=== PATIENT | female | born 1970 | race Caucasian/White ===

== ENCOUNTER 2016-09-03 20:49 | Emergency (ER) | payer SELFPAY ==
[~2016-09-03] VITALS: Ht 162.6 cm; Wt 64.4 kg
[~2016-09-03 20:49] MED LIST: HYDR25TA6 PO; LISI-170 PO; LISI40TA PO; METO25TA35 PO; METO50TA82 PO; ZOLP-413 PO
[2016-09-03] MEDS ORDERED: SODIUM CHLORIDE 0.9% 1,000ML IVBOLUS ONE (21:30)
[2016-09-03] MEDS ORDERED: ONDANSETRON 2MG/ML, 2ML IVPush ONE (21:30)
[2016-09-03] MEDS ORDERED: MORPHINE SULFATE 4 MG/ML, 1ML IVPush PRN (21:30)
[2016-09-03] MEDS ORDERED: KETOROLAC 30 MG/1 ML IVPush ONE (21:30)
[2016-09-03] MEDS ORDERED: SODIUM CHLORIDE FLUSH 10ML SYR IVF ONE (21:30)
[2016-09-03] MEDS ORDERED: ONDANSETRON 2MG/ML, 2ML ONE (21:43)
[2016-09-03] MEDS ORDERED: KETOROLAC 30 MG/1 ML ONE (21:43)
[2016-09-03 22:03] LABS: ASPARTATE AMINO TRANSFERASE 131 U/L (15-37); BLOOD UREA NITROGEN 7 mg/dL (7-18)
[2016-09-03 22:08] LABS: IS PT STATUS REG ER OR PRE ER? YES
[2016-09-03 23:00] VITALS: BP 105/72
== END 2016-09-03 23:03 | disposition left against medical advice (07) ==
LOC: ED 22:57
DX: R07.89 Other chest pain (principal); I10 Essential (primary) hypertension; K75.9 Inflammatory liver disease, unspecified; F17.200 Nicotine dependence, unspecified, uncomplicated; F11.10 Opioid abuse, uncomplicated
CPT/HCPCS: 36415; 71010; 80053; 84484; 85025; 85379; 93005; 96374; 96375; 99285; J1885; J2405; J7030

== ENCOUNTER 2018-05-07 14:48 | Emergency (ER) | payer OTHER ==
[~2018-05-07] VITALS: Ht 162.6 cm; Wt 68.1 kg
[2018-05-07 14:52] VITALS: BP 178/96
[2018-05-07] MEDS ORDERED: FLUORESCEIN OPHTHALMIC 1 MG STRIP LEFTEYE ONE (15:00)
[2018-05-07] MEDS ORDERED: PROPARACAINE OPHTH 0.5%, 15ML LEFTEYE ONE (15:00)
[2018-05-07] MEDS ORDERED: PROPARACAINE OPHTH 0.5%, 15ML ONE (15:01)
== END 2018-05-07 15:51 | disposition home or self-care (01) ==
LOC: ED 15:15
DX: H10.212 Acute toxic conjunctivitis, left eye (principal); I10 Essential (primary) hypertension; Z88.5 Allergy status to narcotic agent
CPT/HCPCS: 99283

== ENCOUNTER 2019-07-29 21:52 | Emergency (ER) | payer OTHER ==
[~2019-07-29] VITALS: Ht 165.1 cm; Wt 68.2 kg
[2019-07-29] MEDS ORDERED: ZIPRASIDONE 20 MG INJ IM ONE ×2 (22:00)
[2019-07-29] MEDS ORDERED: LORazepam 2 MG/ML, 1ML IM ONE (22:00)
[2019-07-29] MEDS ORDERED: LORazepam 2 MG/ML, 1ML ONE (22:02)
--- NOTE | 2019-07-29 22:12 | NUR ---
2 of 2 belongings bags placed in secure locker.
--- NOTE | 2019-07-29 22:12 | NUR ---
LEGAL HOLD PLACED BY [employer].
[2019-07-29 22:46] LABS: BASOPHILS # (AUTO) 0.14 x10^3/uL (0-0.1); BASOPHILS % (AUTO) 2 % (0-1); EOSINOPHILS # (AUTO) 0.39 x10^3/uL (0-0.4); EOSINOPHILS % (AUTO) 6 % (1-7); LYMPHOCYTES % (AUTO) 43 % (22-44); MD NO; MEAN CORPUSCULAR HEMOGLOBIN 29.5 pg (27.0-34.8); MEAN CORPUSCULAR HGB CONC 33.1 g/dL (32.4-35.8); MEAN CORPUSCULAR VOLUME 89.3 fL (80-100); MEAN PLATELET VOLUME 8.2 fL (7.4-10.4); MONOCYTES # (AUTO) 0.55 x10^3/uL (0.2-0.8); MONOCYTES % (AUTO) 8 % (2-9); NEUTROPHILS # (AUTO) 2.94 x10^3/uL (1.8-6.8); NEUTROPHILS % (AUTO) 42 % (42-75); PLATELET COUNT 242 x10^3/uL (130-400); RED BLOOD COUNT 4.56 x10^6/uL (3.82-5.3); RED CELL DISTRIBUTION WIDTH 18.3 % (9.6-15.2)
[2019-07-29 22:55] LABS: ALANINE AMINOTRANSFERASE 87 U/L (12-78); ALBUMIN 3.5 g/dL (3.4-5.0); ANION GAP 10 mmol/L (5-15); CALCIUM 8.4 mg/dL (8.5-10.1); CHLORIDE 111 mmol/L (98-107); CREATININE 0.73 mg/dL (0.55-1.02)
[2019-07-29 22:59] LABS: SALICYLATE LEVEL < 1.7 mg/dL (2.8-20.0)
[2019-07-29 23:00] LABS: ALKALINE PHOSPHATASE 103 U/L (45-117); BILIRUBIN,TOTAL 0.5 mg/dL (0.2-1.0); TOTAL PROTEIN 8.8 g/dL (6.4-8.2)
--- NOTE | 2019-07-29 23:02 | NUR ---
PT RECIEVED BY [employer]. SHE CALLED THEM BECAUSE SHE WAS HAVING THOUGHT ABOUT HURTING HERSELF. SHE SAID SHE WAS DRINKING BECAUSE SHE HASNT SLEPT FOR 4 DAYS. PT UNSURE OF AMOUNT OF ALCOHOL. PT SAYS SHE HAS BEEN FEELING SUICIDAL FOR A COUPLE DAYS AND HER PLAN WAS TO USE A RAZOR BLADE TO CUT HER WRISTS TONIGHT. SHE THOUGHT ABOUT HER 2 DAUGHTERS AND DECIDED TO CALL THE POLICE INSTEAD TO GET HELP. PT REPORTS PSYCH HX OF SCHIZOPHRENIA, OCD. PER PT NO HX SI OR SA. NO HOME MEDS FOR 1-2 YEARS. HEARS A VIOCE IN HER RIGHT EAR ONLY THAT SAYS HER NAME BUT NO COMMANDS OR NEGATIVE CONTENT FROM VOICE. PT RECIEVED IN HANDCUFFS DUE TO COMBATIVE BEHAVIOR PER [employer]. PT AGITATED AND I USED VERBAL DE-ESCALATION WITH SUCCESS. PT PLACED IN 4 PT RESTRAINTS PER ER MD SINCERE AND THEN PT MEDICATED PER ER MD ORDERS. PT TOLERATED RESTRAINTS AND MEDICATIONS WELL. RESTAINTS WERE IN PLACE FOR ONLY 45 MINUTES BEFORE BEING TOTALLY REMOVED. SEE PAPER CHART FOR RESRAINT PAPERWORK.
--- NOTE | 2019-07-29 23:08 | NUR ---
PT RESTING ON GURNEY WITH O2 MONITORING. PT EYES CLOSED, RESPIRATIONS EVEN AND UNLABORED. SITTER AT BEDSIDE 1:1 FOR PT SAFTEY.
--- NOTE | 2019-07-30 00:58 | NUR ---
PT RESTING ON GURNEY WITH O2 MONITORING. PT EYES CLOSED, RESPIRATIONS EVEN AND UNLABORED. SITTER AT BEDSIDE 1:1 FOR PT SAFTEY.
--- NOTE | 2019-07-30 02:46 | NUR ---
PT RESTING ON GURNEY WITH O2 MONITORING. PT EYES CLOSED, RESPIRATIONS EVEN AND UNLABORED. SITTER AT BEDSIDE 1:1 FOR PT SAFTEY.
--- NOTE | 2019-07-30 03:10 | NUR ---
Spoke to [facility]. Floor not accepting patients at this time.
--- NOTE | 2019-07-30 03:10 | NUR ---
Patient info packet sent to [facility].
--- NOTE | 2019-07-30 04:17 | NUR ---
PT RESTING ON GURNEY WITH O2/BP MONITORING. PT EYES CLOSED, RESPIRATIONS EVEN AND UNLABORED. SITTER AT DOORWAY FOR FREQUENT CHECKS.
--- NOTE | 2019-07-30 07:32 | NUR ---
BEDSIDE REPORT RECIEVED, PT RESTING ON HOSPITAL BED. NAD NOTED. WATER REQUESTED AND GIVEN TO PT, DISCUSSED NEED FOR URINE SAMPLE.
[2019-07-30 08:52] VITALS: BP 142/95
--- NOTE | 2019-07-30 08:53 | NUR ---
BREAK RN: VSS, PATIENT UP IN BED EATING BREAKFAST AT THIS TIME.
[2019-07-30] MEDS ORDERED: LORazepam 1MG TABLET ONE (11:23)
[2019-07-30] MEDS ORDERED: LORazepam 1MG TABLET PO PRN (11:30)
--- NOTE | 2019-07-30 11:37 | NUR ---
PT RESTING ON GURNEY. PT REQUESTED FOR PRN ANXIETY MEDICATION. ORDER OBTAINED FROM , PT MEDICATED PER JUL. PT ASSISTED TO PHONE TO CALL PER REQUEST.
[2019-07-30 11:51] LABS: AMPHETAMINE SCREEN, URINE Positive (Negative); BARBITURATE SCREEN, URINE Negative (Negative); BENZODIAZEPINE SCREEN, URINE Negative (Negative); CANNABINOID SCREEN, URINE Negative (Negative); COCAINE SCREEN, URINE Negative (Negative); METHADONE SCREEN, URINE Negative (Negative); OPIATE SCREEN, URINE Negative (Negative)
[2019-07-30] MEDS ORDERED: ARIPIPRAZOLE 10 MG TABLET ONE (12:54)
[2019-07-30] MEDS ORDERED: ARIPIPRAZOLE 400 MG INJ NC IM ONE (13:00)
[2019-07-30] MEDS ORDERED: ARIPIPRAZOLE 10 MG TABLET PO SCH (13:00)
--- NOTE | 2019-07-30 13:12 | NUR ---
PHARMACY CALLED, NO ABILIFY MAINTAINA AVAILABLE IN HOSPITAL. NAVNEET BUCHANAN UPDATED
== END 2019-07-30 13:34 | disposition home or self-care (01) ==
LOC: ED 23:01
DX: F22 Delusional disorders (principal); F23 Brief psychotic disorder; R45.851 Suicidal ideations; F17.200 Nicotine dependence, unspecified, uncomplicated; I10 Essential (primary) hypertension; Z90.89 Acquired absence of other organs; Z90.49 Acquired absence of other specified parts of digestive tract; Z90.710 Acquired absence of both cervix and uterus
CPT/HCPCS: 36415; 80053; 80307; 84703; 85025; 96372; 99285; J2060; J3486

== ENCOUNTER 2020-05-17 08:44 | Emergency (ER) | payer OTHER ==
[~2020-05-17] VITALS: Ht 165.1 cm; Wt 65.0 kg
[2020-05-17] MEDS ORDERED: PLEASE ENTER HEIGHT AND WEIGHT MC SCH (09:00)
[2020-05-17] MEDS ORDERED: KETOROLAC 30 MG/1 ML IVPush ONE (09:00)
[2020-05-17] MEDS ORDERED: LORazepam 2 MG/ML, 1ML IVPush ONE (09:00)
[2020-05-17] MEDS ORDERED: SODIUM CHLORIDE 0.9% 1,000ML IVBOLUS ONE (09:00)
[2020-05-17] MEDS ORDERED: ASPIRIN 81 MG TABLET CHEW PO ONE (09:00)
[2020-05-17] MEDS ORDERED: ONDANSETRON 2MG/ML, 2ML IVPush ONE (09:00)
--- NOTE | 2020-05-17 09:01 | NUR ---
bib AMB from home. pt stopped doing heroin 4 days ago and since last night has had intermit subsertnal CP since last night. pt states she feels very anxious and has not slept. would like something to help calm her down. vss + tachycardic at 118
[2020-05-17] MEDS ORDERED: KETOROLAC 30 MG/1 ML ONE (09:05)
[2020-05-17] MEDS ORDERED: ONDANSETRON 2MG/ML, 2ML ONE (09:06)
[2020-05-17] MEDS ORDERED: LORazepam 2 MG/ML, 1ML ONE (09:06)
[2020-05-17] MEDS ORDERED: BUPRENORPHINE/NALOXONE 2-0.5MG SL ONE (09:30)
--- NOTE | 2020-05-17 09:31 | NUR ---
PT STATES SHE IS FEELING A LITTLE CALMER. VSS.
[2020-05-17 09:43] LABS: MEAN CORPUSCULAR HEMOGLOBIN 29.8 pg (27.0-34.8); MEAN CORPUSCULAR HGB CONC 33.5 g/dL (32.4-35.8); MEAN PLATELET VOLUME 8.5 fL (7.4-10.4); PLATELET COUNT 161 x10^3/uL (130-400); RED CELL DISTRIBUTION WIDTH 15.2 % (9.6-15.2)
--- NOTE | 2020-05-17 09:47 | NUR ---
pt resting in bed. vss.
[2020-05-17 09:52] LABS: ALBUMIN 2.8 g/dL (3.4-5.0); ANION GAP 6 mmol/L (5-15); CALCIUM 8.3 mg/dL (8.5-10.1); CHLORIDE 102 mmol/L (98-107)
[2020-05-17 09:57] LABS: ALANINE AMINOTRANSFERASE 32 U/L (12-78); ALKALINE PHOSPHATASE 102 U/L (45-117); BILIRUBIN,TOTAL 1.2 mg/dL (0.2-1.0); CREATININE 0.64 mg/dL (0.55-1.02); TOTAL PROTEIN 7.6 g/dL (6.4-8.2); TROPONIN I < 0.015 ng/mL (0.000-0.045)
--- NOTE | 2020-05-17 10:14 | NUR ---
pt sleeping in bed. vss. will continue to monitor.
[2020-05-17 10:16] LABS: MD YES
[2020-05-17 10:18] LABS: <RBC MORPHOLOGY> NORMAL; BAND#(MANUAL) 0.14 x10^3/uL; BANDS%(MANUAL) 1 % (0-7); LYMPH#(MANUAL) 0.84 x10^3/uL (1-3.4); LYMPHS% (MANUAL) 6 % (22-44); MONOS#(MANUAL) 1.12 x10^3/uL (0.3-2.7); MONOS% (MANUAL) 8 % (2-9); SEGS% (MANUAL) 85 % (42-75)
[2020-05-17 10:19] LABS: <PLATELET ESTIMATE> DECREASED; <PLT MORPHOLOGY> NORMAL PLT MORPH
[2020-05-17] MEDS ORDERED: OMNIPAQUE 350 MG/ML, 100ML BOTTLE ONE (10:39)
[2020-05-17 12:57] VITALS: BP 134/71
[2020-05-18] MEDS ORDERED: METO50TA82 PO (11:44)
[2020-05-18] MEDS ORDERED: LISI-170 PO (11:44)
== END 2020-05-17 13:00 | disposition home or self-care (01) ==
LOC: ED 09:38
DX: J15.9 Unspecified bacterial pneumonia (principal); R11.2 Nausea with vomiting, unspecified; I10 Essential (primary) hypertension; F19.139 Other psychoactive substance abuse with withdrawal, unspecified; R06.02 Shortness of breath; R07.89 Other chest pain; F17.200 Nicotine dependence, unspecified, uncomplicated; Z76.0 Encounter for issue of repeat prescription; Z90.49 Acquired absence of other specified parts of digestive tract; Z90.89 Acquired absence of other organs; Z90.710 Acquired absence of both cervix and uterus
CPT/HCPCS: 36415; 71045; 71275; 80053; 83880; 84484; 85025; 85379; 93005; 96361; 96374; 96375; 99285; J0572; J1885; J2405; J7030; Q9967

== ENCOUNTER 2020-05-18 07:38 | Inpatient (IN) | payer OTHER ==
[~2020-05-18] VITALS: Ht 165.1 cm; Wt 69.1 kg
--- NOTE | 2020-05-18 08:04 | NUR ---
PT BIBA FROM [facility], REPORT TAKEN FROM EMS. C/O "POUNDING CHEST" , SOB, HEADACHE, INTERMITTENT SHARP STERNAL CP SINCE LAST NIGHT. PT SEEN IN THIS ED YESTERDAY FOR HTN AND HEROIN WITHDRAWAL, DX WITH PNA AND SENT HOME WITH SCRIPT FOR METOPROLOL, LISINOPRIL, SUBOXONE AND AZITHROMYCIN, PT DID NOT FILL SCRIPTS. LAST HEROIN USE 5 DAYS AGO. ALL MONITORS IN PLACE, PT IS SINUS TACH RATE 100'S WITH NO ECTOPY. EKG TAKEN BY THIS RN AND REVIEWED BY JENNIFER VAUGHN. PT DRESSED IN GOWN AND AWAITING MD ASSESSMENT.
[2020-05-18] MEDS ORDERED: CEFTRIAXONE PMX 1GM/50ML 50 ML IVPB ONE (08:30)
[2020-05-18] MEDS ORDERED: SODIUM CHLORIDE 0.9% 1,000ML IVBOLUS ONE (08:30)
[2020-05-18] MEDS ORDERED: AZITHROMYCIN 500 MG in SODIUM CHLORIDE 0.9% 250 ML IV ONE (08:30)
[2020-05-18] MEDS ORDERED: LORazepam 1MG TABLET ONE (08:51)
[2020-05-18 08:53] LABS: ALBUMIN 2.7 g/dL (3.4-5.0); ANION GAP 7 mmol/L (5-15); CALCIUM 8.1 mg/dL (8.5-10.1); CHLORIDE 101 mmol/L (98-107); CREATININE 0.63 mg/dL (0.55-1.02)
[2020-05-18 08:56] LABS: TROPONIN I < 0.015 ng/mL (0.000-0.045)
[2020-05-18] MEDS ORDERED: LORazepam 1MG TABLET PO ONE (09:00)
[2020-05-18 09:03] LABS: BASOPHILS % (AUTO) 1 % (0-1); EOSINOPHILS % (AUTO) 2 % (1-7); LYMPHOCYTES % (AUTO) 11 % (22-44); MEAN CORPUSCULAR HEMOGLOBIN 30.1 pg (27.0-34.8); MEAN PLATELET VOLUME 8.5 fL (7.4-10.4); MONOCYTES % (AUTO) 14 % (2-9); NEUTROPHILS % (AUTO) 73 % (42-75); PLATELET COUNT 139 x10^3/uL (130-400); RED BLOOD COUNT 4.08 x10^6/uL (3.82-5.3); RED CELL DISTRIBUTION WIDTH 14.8 % (9.6-15.2)
[2020-05-18] MEDS ORDERED: CEFTRIAXONE PMX 1GM/50ML 50 ML ONE (09:07)
[2020-05-18 09:08] LABS: MD NO
--- NOTE | 2020-05-18 09:30 | NUR ---
late entry for 0930: report given to IGNACIO Montgomery.
--- NOTE | 2020-05-18 09:40 | NUR ---
task rn- pt resting in bed, call light in reach
--- NOTE | 2020-05-18 10:05 | NUR ---
ARMIN VAUGHN AT BEDSIDE TO DISCUSS POC
--- NOTE | 2020-05-18 11:40 | NUR ---
CARE ASSUMED FROM IGNACIO BEGUM, REPORT CALLED TO RECEIVING IGNACIO SEBASTIAN. PT AWAITING TRANSPORT TO [facility].
[2020-05-18] MEDS ORDERED: METO50TA82 PO (11:44)
[2020-05-18] MEDS ORDERED: LISI-170 PO (11:44)
--- NOTE | 2020-05-18 11:47 | NUR ---
pt sleeping, resps even and unlabored. awakens to voice. call light in reach. spo2 89% on room air, oxgen applied at 2L/min via nc. no s/sx resp distress. med rec complete. pt awaiting transport to [facility].
--- NOTE | 2020-05-18 11:51 | NUR ---
BEDSIDE REPORT RECEIVED FROM IGNACIO MAXWELL FOR TRANSFER OF PATIENT CARE.
--- NOTE | 2020-05-18 11:59 | NUR ---
PATIENT TRANSFERRED TO [facility] FLOOR VIA GURNEY WITH 2 ED TECHS. ALL PATIENT BELONGINGS GATHERED AND TAKEN WITH PATIENT TO FLOOR.
[2020-05-18] MEDS ORDERED: LORazepam 1MG TABLET PO PRN (13:00)
[2020-05-18] MEDS ORDERED: MELATONIN 5 MG TABLET PO PRN (13:00)
[2020-05-18] MEDS ORDERED: PHARMACY MAY ADJ FOR RENAL FX MC PRN (13:00)
[2020-05-18] MEDS ORDERED: DOCUSATE 100 MG CAPSULE PO PRN (13:00)
[2020-05-18] MEDS: ENOXAPARIN 40 MG/0.4 ML SQ SCH (13:00)
[2020-05-18] MEDS ORDERED: hydrALAzine 20 MG/ML, 1ML IVPush PRN (13:00)
[2020-05-18] MEDS ORDERED: ONDANSETRON ODT 4 MG PO PRN (13:00)
[2020-05-18] MEDS ORDERED: ACETAMINOPHEN 325 MG TABLET PO PRN (13:00)
[2020-05-18] MEDS ORDERED: POLYETHYLENE GLYCOL 17 GM PACKET PO PRN (13:00)
[2020-05-18] MEDS ORDERED: BISACODYL 10 MG SUPP PR PRN (13:00)
[2020-05-18] MEDS ORDERED: ONDANSETRON 2MG/ML, 2ML IVPush PRN (13:00)
[2020-05-18] MEDS ORDERED: HYDROcodone/APAP 5/325 TABLET PO PRN (13:00)
[2020-05-18] MEDS ORDERED: VANCOMYCIN PER PHARMACY MC PRN (13:30)
[2020-05-18 13:33] VITALS: BP 147/77
[2020-05-18] MEDS ORDERED: PHARMACOKINETIC CONSULTATION MC ONE (14:00)
[2020-05-18] MEDS ORDERED: PHARMACOKINETIC MONITORING MC PRN (14:00)
[2020-05-18 15:00] VITALS: BP 137/64
[2020-05-18] MEDS ORDERED: VANCOMYCIN 1,600 MG in SODIUM CHLORIDE 0.9% 250 ML IV ONE (15:30)
[2020-05-18] MEDS: METOPROLOL TARTRATE 25 MG TAB PO SCH (17:41)
[2020-05-18] MEDS: ASCORBIC ACID 500 MG TABLET PO SCH (20:04)
[2020-05-18 20:46] VITALS: BP 128/78
[2020-05-19 01:29] VITALS: BP 152/89
[2020-05-19] MEDS: VANCOMYCIN 1,300 MG in SODIUM CHLORIDE 0.9% 250 ML IV SCH ×2 (03:21→14:33)
[2020-05-19 05:30] LABS: BASOPHILS % (AUTO) 1 % (0-1); EOSINOPHILS % (AUTO) 3 % (1-7); LYMPHOCYTES % (AUTO) 13 % (22-44); MD NO; MEAN CORPUSCULAR HEMOGLOBIN 29.9 pg (27.0-34.8); MEAN CORPUSCULAR HGB CONC 33.4 g/dL (32.4-35.8); MEAN PLATELET VOLUME 8.3 fL (7.4-10.4); MONOCYTES % (AUTO) 14 % (2-9); NEUTROPHILS % (AUTO) 69 % (42-75); PLATELET COUNT 151 x10^3/uL (130-400); RED BLOOD COUNT 4.22 x10^6/uL (3.82-5.3); RED CELL DISTRIBUTION WIDTH 14.7 % (9.6-15.2)
[2020-05-19 05:40] VITALS: BP 127/73
[2020-05-19] MEDS: METOPROLOL TARTRATE 25 MG TAB PO SCH ×2 (05:43→17:40)
[2020-05-19 05:46] LABS: CHLORIDE 104 mmol/L (98-107)
[2020-05-19 05:55] LABS: ALANINE AMINOTRANSFERASE 28 U/L (12-78); ALBUMIN 2.6 g/dL (3.4-5.0); ALKALINE PHOSPHATASE 90 U/L (45-117); ANION GAP 4 mmol/L (5-15); BILIRUBIN,TOTAL 1.4 mg/dL (0.2-1.0); CALCIUM 8.3 mg/dL (8.5-10.1); CREATININE 0.64 mg/dL (0.55-1.02); TOTAL PROTEIN 7.2 g/dL (6.4-8.2)
[2020-05-19] MEDS ORDERED: BUPRENORPHINE/NALOXONE 8-2MG SL ONE (06:00)
[2020-05-19 06:27] LABS: HCG UR SG 1.006 (1.003-1.030)
[2020-05-19 06:52] VITALS: BP 126/78
[2020-05-19] MEDS ORDERED: CHOLECALCIFEROL 5,000u TAB PO SCH (09:00)
[2020-05-19] MEDS ORDERED: AZITHROMYCIN 250 MG TABLET PO SCH (09:00)
[2020-05-19] MEDS ORDERED: ZINC SULFATE 220 MG CAPSULE PO SCH (09:00)
[2020-05-19] MEDS: BUPRENORPHINE/NALOXONE 8-2MG SL SCH (09:00)
[2020-05-19] MEDS ORDERED: THIAMINE 100MG TABLET PO SCH (09:00)
[2020-05-19] MEDS: CEFTRIAXONE PMX 2GM/50ML 50 ML IVPB SCH (09:17)
[2020-05-19] MEDS: ASCORBIC ACID 500 MG TABLET PO SCH (09:17)
[2020-05-19] MEDS: LISINOPRIL 20 MG TABLET PO SCH (09:18)
[2020-05-19] MEDS: ENOXAPARIN 40 MG/0.4 ML SQ SCH (11:51)
[2020-05-19 12:23] VITALS: BP 102/64
[2020-05-19] MEDS: LACTATED RINGERS 1,000 ML IV SCH ×2 (14:07→20:41)
[2020-05-19 17:38] VITALS: BP 113/68
[2020-05-19 19:55] VITALS: BP 122/67
[2020-05-20 01:11] VITALS: BP 108/64
[2020-05-20] MEDS: VANCOMYCIN 1,300 MG in SODIUM CHLORIDE 0.9% 250 ML IV SCH (03:03)
[2020-05-20 05:44] LABS: BASOPHILS % (AUTO) 2 % (0-1); EOSINOPHILS % (AUTO) 9 % (1-7); LYMPHOCYTES % (AUTO) 19 % (22-44); MEAN CORPUSCULAR HEMOGLOBIN 29.8 pg (27.0-34.8); MEAN CORPUSCULAR HGB CONC 33.4 g/dL (32.4-35.8); MEAN PLATELET VOLUME 8.1 fL (7.4-10.4); MONOCYTES % (AUTO) 16 % (2-9); NEUTROPHILS % (AUTO) 53 % (42-75); PLATELET COUNT 164 x10^3/uL (130-400); RED BLOOD COUNT 3.78 x10^6/uL (3.82-5.3); RED CELL DISTRIBUTION WIDTH 14.8 % (9.6-15.2)
[2020-05-20 05:54] LABS: ALANINE AMINOTRANSFERASE 29 U/L (12-78); ALBUMIN 2.2 g/dL (3.4-5.0); ANION GAP 3 mmol/L (5-15); CALCIUM 7.8 mg/dL (8.5-10.1); CHLORIDE 106 mmol/L (98-107); MD NO
[2020-05-20 05:57] LABS: ALKALINE PHOSPHATASE 90 U/L (45-117); BILIRUBIN,TOTAL 0.7 mg/dL (0.2-1.0); CREATININE 0.57 mg/dL (0.55-1.02); TOTAL PROTEIN 6.3 g/dL (6.4-8.2)
[2020-05-20] MEDS: LACTATED RINGERS 1,000 ML IV SCH ×3 (06:05→21:55)
[2020-05-20 06:06] VITALS: BP 115/68
[2020-05-20] MEDS: METOPROLOL TARTRATE 25 MG TAB PO SCH ×2 (06:07→18:06)
[2020-05-20 07:22] VITALS: BP 99/51
[2020-05-20] MEDS: BUPRENORPHINE/NALOXONE 8-2MG SL SCH (08:15)
[2020-05-20] MEDS: LISINOPRIL 20 MG TABLET PO SCH (08:18)
[2020-05-20 08:19] VITALS: BP 115/67
[2020-05-20] MEDS: CEFTRIAXONE PMX 2GM/50ML 50 ML IVPB SCH (09:49)
[2020-05-20] MEDS ORDERED: MAGNESIUM HYDROXIDE 8%, 30ML UDC PO PRN (13:00)
[2020-05-20 13:03] VITALS: BP 124/74
[2020-05-20] MEDS: PIPERACILLIN/TAZO/PMX 3.375GM 50 ML IV SCH ×2 (16:20→21:55)
[2020-05-20 19:40] VITALS: BP 96/59
[2020-05-20] MEDS: ENOXAPARIN 40 MG/0.4 ML SQ SCH (21:55)
[2020-05-21 01:26] VITALS: BP 142/82
[2020-05-21] MEDS: PIPERACILLIN/TAZO/PMX 3.375GM 50 ML IV SCH ×4 (03:48→21:54)
[2020-05-21 04:58] LABS: BASOPHILS % (AUTO) 2 % (0-1); EOSINOPHILS % (AUTO) 10 % (1-7); LYMPHOCYTES % (AUTO) 21 % (22-44); MEAN CORPUSCULAR HEMOGLOBIN 29.6 pg (27.0-34.8); MEAN CORPUSCULAR HGB CONC 32.8 g/dL (32.4-35.8); MEAN PLATELET VOLUME 8.1 fL (7.4-10.4); MONOCYTES % (AUTO) 13 % (2-9); NEUTROPHILS % (AUTO) 54 % (42-75); PLATELET COUNT 175 x10^3/uL (130-400); RED BLOOD COUNT 3.84 x10^6/uL (3.82-5.3); RED CELL DISTRIBUTION WIDTH 15.1 % (9.6-15.2)
[2020-05-21 05:06] LABS: MD NO
[2020-05-21 05:11] LABS: ALBUMIN 2.2 g/dL (3.4-5.0); ANION GAP 5 mmol/L (5-15); CALCIUM 7.8 mg/dL (8.5-10.1); CHLORIDE 108 mmol/L (98-107)
[2020-05-21 05:15] LABS: ALANINE AMINOTRANSFERASE 38 U/L (12-78); ALKALINE PHOSPHATASE 86 U/L (45-117); BILIRUBIN,TOTAL 0.8 mg/dL (0.2-1.0); CREATININE 0.61 mg/dL (0.55-1.02); TOTAL PROTEIN 6.3 g/dL (6.4-8.2)
[2020-05-21 05:57] VITALS: BP 106/64
[2020-05-21] MEDS: LACTATED RINGERS 1,000 ML IV SCH ×2 (06:00→14:58)
[2020-05-21] MEDS: METOPROLOL TARTRATE 25 MG TAB PO SCH ×2 (06:00→17:18)
[2020-05-21 06:39] VITALS: BP 122/75
[2020-05-21] MEDS: BUPRENORPHINE/NALOXONE 8-2MG SL SCH (09:00)
[2020-05-21] MEDS: LISINOPRIL 20 MG TABLET PO SCH (09:32)
[2020-05-21 12:13] VITALS: BP 133/76
[2020-05-21 19:36] VITALS: BP 113/66
[2020-05-21] MEDS: ENOXAPARIN 40 MG/0.4 ML SQ SCH (21:55)
[2020-05-22 00:23] VITALS: BP 133/73
[2020-05-22] MEDS: PIPERACILLIN/TAZO/PMX 3.375GM 50 ML IV SCH ×2 (03:39→09:12)
[2020-05-22 05:59] VITALS: BP 127/86
[2020-05-22] MEDS: METOPROLOL TARTRATE 25 MG TAB PO SCH (06:04)
[2020-05-22 06:39] VITALS: BP 112/71
[2020-05-22] MEDS: BUPRENORPHINE/NALOXONE 8-2MG SL SCH (09:00)
[2020-05-22] MEDS: LISINOPRIL 20 MG TABLET PO SCH (09:13)
[2020-05-22] MEDS ORDERED: LISI40TA PO (13:23)
[2020-05-22] MEDS ORDERED: CEPH-376 PO (13:26)
== END 2020-05-22 13:42 | disposition home or self-care (01) | DRG 871 ==
LOC: ED 09:26 → EDIP 11:23 → 4WST 11:58 → 3N 05-19 17:56 → DCLOUNGE 05-22 13:36
PROVIDERS: ADMIT Family Medicine; ATTEND Family Medicine
DX: A41.51 Sepsis due to Escherichia coli [E. coli] (principal); J18.9 Pneumonia, unspecified organism; F11.23 Opioid dependence with withdrawal; F17.200 Nicotine dependence, unspecified, uncomplicated; F25.9 Schizoaffective disorder, unspecified; I10 Essential (primary) hypertension; Z20.822 Contact with and (suspected) exposure to COVID-19; Z79.899 Other long term (current) drug therapy; Z90.710 Acquired absence of both cervix and uterus; Z90.49 Acquired absence of other specified parts of digestive tract; Z88.5 Allergy status to narcotic agent
CPT/HCPCS: 36415; 84145; J0574; 71045; 80048; 80053; 81025; 82040; 83605; 84484; 85025; 87040; 87077; 87186; 93005; 93306; G0378; J0456; J0696; J1650; J2543; J3370; J7030; J7050; J7120; U0003